=== PATIENT | female | born 1990 | race Two or more races ===

== ENCOUNTER 2018-05-16 05:40 | Inpatient (IN) | payer BC, OTHER ==
[~2018-05-16] VITALS: Ht 160 cm; Wt 93.0 kg
[~2018-05-16 05:40] MED LIST: DOCU-131 PO; HYDR-3240 PO; IBUP-1223 PO; NONE PER PT
[2018-05-16] MEDS ORDERED: LACTATED RINGERS 1,000 ML IV SCH ×2 (05:53→06:05)
[2018-05-16] MEDS ORDERED: D5%-LACTATED RINGERS 1,000 ML IV SCH (05:53)
[2018-05-16] MEDS ORDERED: OXYTOCIN 30U/ 0.9% NaCL 500ML 500 ML IV ONE (05:53)
[2018-05-16] MEDS ORDERED: OXYTOCIN 30U/ 0.9% NaCL 500ML 500 ML ONE ×2 (05:54→08:44)
[2018-05-16] MEDS ORDERED: MISOPROSTOL 200 MCG TABLET ONE (05:54)
[2018-05-16] MEDS ORDERED: FENTANYL PF 100 MCG/2ML ONE ×2 (05:54→07:05)
[2018-05-16] MEDS ORDERED: ONDANSETRON 2MG/ML, 2ML IVPush PRN (06:00)
[2018-05-16] MEDS ORDERED: CALCIUM CARBONATE 500 MG TAB.CHEW PO PRN (06:00)
[2018-05-16] MEDS ORDERED: TERBUTALINE 1 MG/ML, 1ML IVPush PRN (06:00)
[2018-05-16] MEDS ORDERED: FENTANYL PF 100 MCG/2ML IV PRN (06:00)
[2018-05-16] MEDS ORDERED: FENTANYL/BUPIV./NS/PF 250 ML EPIDCONT SCH (06:05)
[2018-05-16] MEDS: FENTANYL PF 100 MCG/2ML IVPush PRN ×2 (06:12→07:07)
[2018-05-16 06:24] LABS: BASOPHILS # (AUTO) 0.02 x10^3/uL (0-0.1); BASOPHILS % (AUTO) 0 % (0-1); EOSINOPHILS # (AUTO) 0.03 x10^3/uL (0-0.4); EOSINOPHILS % (AUTO) 0 % (1-7); LYMPHOCYTES # (AUTO) 1.92 x10^3/uL (1-3.4); LYMPHOCYTES % (AUTO) 22 % (22-44); MD NO; MEAN CORPUSCULAR HEMOGLOBIN 31.4 pg (27.0-34.8); MEAN CORPUSCULAR HGB CONC 34.1 g/dL (32.4-35.8); MEAN CORPUSCULAR VOLUME 92.1 fL (80-100); MEAN PLATELET VOLUME 8.4 fL (7.4-10.4); MONOCYTES # (AUTO) 0.64 x10^3/uL (0.2-0.8); MONOCYTES % (AUTO) 7 % (2-9); NEUTROPHILS # (AUTO) 6.12 x10^3/uL (1.8-6.8); NEUTROPHILS % (AUTO) 70 % (42-75); PLATELET COUNT 244 x10^3/uL (130-400); RED BLOOD COUNT 3.99 x10^6/uL (3.82-5.3); RED CELL DISTRIBUTION WIDTH 13.9 % (9.6-15.2)
[2018-05-16] MEDS ORDERED: LACTATED RINGERS 1,000 ML IVBOLUS PRN (06:30)
[2018-05-16] MEDS ORDERED: FENTANYL PF 500 MCG, BUPIVACAINE/PF 0.5%, 30ML 62.5 ML in SODIUM CHLORIDE 0.9% 177.5 ML EPIDCONT SCH (07:00)
[2018-05-16] MEDS: OXYTOCIN 30U/ 0.9% NaCL 500ML 500 ML IV SCH ×2 (08:52→18:52)
[2018-05-16] MEDS ORDERED: ACETAMINOPHEN 325 MG TABLET PO PRN (09:00)
[2018-05-16] MEDS ORDERED: MISOPROSTOL 200 MCG TABLET PR PRN (09:00)
[2018-05-16] MEDS ORDERED: OXYcodone IR 5MG TABLET PO PRN (09:00)
[2018-05-16] MEDS: PRENATAL VIT/IRON/FA 1 EACH TABLET PO SCH (09:00)
[2018-05-16] MEDS ORDERED: DOCUSATE 100 MG CAPSULE PO PRN (09:00)
[2018-05-16] MEDS ORDERED: OXYcodone/APAP 5/325MG TABLET PO PRN (09:00)
[2018-05-16] MEDS ORDERED: ONDANSETRON 2MG/ML, 2ML IV PRN (09:00)
[2018-05-16 09:15] VITALS: BP 101/61
[2018-05-16] MEDS: IBUPROFEN 600 MG TABLET PO PRN (11:23)
[2018-05-16 16:00] VITALS: BP 107/69
[2018-05-16 19:45] VITALS: BP 104/66
[2018-05-17] VITALS: BP 104/63
[2018-05-17] MEDS: IBUPROFEN 600 MG TABLET PO PRN ×2 (00:09→08:41)
[2018-05-17 03:25] VITALS: BP 110/63
[2018-05-17] MEDS: OXYTOCIN 30U/ 0.9% NaCL 500ML 500 ML IV SCH (04:52)
[2018-05-17 07:03] VITALS: BP 103/65
[2018-05-17] MEDS: PRENATAL VIT/IRON/FA 1 EACH TABLET PO SCH (08:49)
== END 2018-05-17 11:35 | disposition home or self-care (01) | DRG 775 ==
LOC: LDOP 05:40 → LDIP 05:51 → 2NW 09:08
PROVIDERS: ADMIT Obstetrics & Gynecology; ATTEND Obstetrics & Gynecology
PROC: 10E0XZZ Delivery of Products of Conception, External Approach (ICD-10-PCS; principal; 2018-05-16)
PROC: 0HQ9XZZ Repair Perineum Skin, External Approach (ICD-10-PCS; 2018-05-16)
DX: O70.0 First degree perineal laceration during delivery (principal); Z3A.37 37 weeks gestation of pregnancy; Z37.0 Single live birth
CPT/HCPCS: 36415; 85025; 86850; 86900; G0378; J3010; J7120